=== PATIENT | female | born 2005 | race Two or more races ===

== ENCOUNTER → 2024-01-15 | Emergency (ER) | payer SELFPAY ==
[~2024-01-15] VITALS: Ht 160 cm; Wt 49.9 kg
[~2024-01-15] MED LIST: ACETAMINOPHEN ES 500 MG TABLET ONE; IBUP-1953 PO; LIDOCAINE 1%-EPI 1:100,000 20 ML VIAL ONE; TDAP [DIPH/PERTUSSIS/TET] 0.5 ML VIAL IM ONE
[2024-01-15] MEDS: ACETAMINOPHEN 325 MG TABLET PO ONE (11:07)
[2024-01-15] MEDS: TDAP [DIPH/PERTUSSIS/TET] 0.5 ML VIAL IM ONE (11:07)
[2024-01-15 12:11] LABS: PREGNANCY TEST URINE QUAL NEGATIVE (NEGATIVE)
[2024-01-15 12:21] VITALS: BP 120/68; TEMP 98; O2SAT 98
== END | disposition home or self-care (01) ==
LOC: ER 09:52
DX: S01.111A Laceration without foreign body of right eyelid and periocular area, initial encounter (principal); R51.9 Headache, unspecified; R10.2 Pelvic and perineal pain; Z79.1 Long term (current) use of non-steroidal anti-inflammatories (NSAID); V89.0XXA Person injured in unspecified motor-vehicle accident, nontraffic, initial encounter; Y93.89 Activity, other specified; Y92.89 Other specified places as the place of occurrence of the external cause; Y99.8 Other external cause status
CPT/HCPCS: 12013; 70450; 84703; 90471; 90715; 99285; A6403; J3490